=== PATIENT | male | born 1995 | race African-American/Black ===

== ENCOUNTER 2020-04-08 23:32 | Emergency (ER) | payer SELFPAY ==
[~2020-04-08] VITALS: Ht 180.3 cm; Wt 65.8 kg
[2020-04-08 23:35] VITALS: BP 128/69
--- NOTE | 2020-04-08 23:58 | NUR ---
Patient discharged to home in stable condition. Written and verbal after care instructions given. Patient verbalizes understanding of instruction. Pt ambulatory with a steady gait
== END 2020-04-09 00:01 | disposition home or self-care (01) ==
LOC: ER 23:32
DX: Z48.01 Encounter for change or removal of surgical wound dressing (principal); L03.011 Cellulitis of right finger